=== PATIENT | female | born 1980 | race Caucasian/White ===

== ENCOUNTER 2018-08-23 09:49 | Outpatient (CLI) | payer OTHER, SELFPAY ==
--- NOTE | 2018-08-23 10:30 | DI.RAD_ITS ---
SYMPTOM/DIAGNOSIS: RT FOOT PAIN, 4TH META RIGHT FOOT: No fracture or dislocation is seen. IMPRESSION: Negative right foot.
== END 2018-08-23 10:09 ==
PROVIDERS: Visit Provider Nurse Practitioner Family
DX: M79.671 Pain in right foot (principal)
CPT/HCPCS: 73630

== ENCOUNTER 2019-03-08 10:25 | Emergency (ER) | payer MEDICAID, SELFPAY ==
[2019-03-08 10:30] VITALS: BP 107/61; PULSE 55; RESP 14; TEMP 36.8; O2SAT 100
--- NOTE | 2019-03-08 10:47 | ED.GENADUL_ITS ---
Discharge Plan Disposition Patient Disposition: HOME Condition: Fair Discharge Details Chief Complaint: Urinary Clinical Impression: UTI (urinary tract infection) Primary Care Provider: Isha Peguero ED Provider: Miya Cruz Home Meds and New Rx's Prescriptions: New cephalexin [Keflex] 500 mg capsule 500 mg PO BID Qty: 10 RF: 0 phenazopyridine [Pyridium] 200 mg tablet 200 mg PO TID PRN (Reason: pain) Qty: 10 RF: 0 Discharge Instructions Instructions: Urinary Tract Infection in Women (ED) Additional Instructions: Continue to encourage hydration. You may use Pyridium as prescribed to help with symptom medic management. Please take Keflex as prescribed. If you develop fever/chills, increased pain, back pain or other new/worsening symptoms please seek care urgently once again. Please keep upcoming appointment with primary care. Referrals: Isha Peguero [Primary Care Provider] - Discharge Data Discharge Date/Time-TO BE ENTERED AT DEPARTURE: 03/08/19 11:27 Medical Decision Making Patient is healthy 38-year-old female presents today with chief complaint of UTI. She reports that for the past few days she is no dysuria, increased frequency, increased urgency. She reports that initially she was having some hematuria but this seems to have resolved. Patient is not currently menstruating. She denies any back pain. No abdominal pain. No recent travel. Patient reports that she has a urinary tract infection the past, last of which was 3 years ago. On exam, patient appears nontoxic. This will be managed by mouth. Urinalysis significant for moderate amount of leukocyte esterase. Negative nitrites. Plan to treat with antibiotics. Encourage hydration. She was given strict return precautions. Patient has a new patient appointment in April to establish with primary care. All of her questions and concerns were addressed and she is in agreement this plan. HPI General Mode of arrival: ambulatory . Date/Time Provider Initiated Documentation: 03/08/19 10:45 . Limitations to Documentation: no limitations . Information obtained by: patient and RN notes reviewed . History of Present Illness 38 year old F presents to the emergency department with the chief complaint of dysurea, described as moderate, Quality is described as burning (with urination), and is localized to the genitals. Patient reports no radiation. Patient started experiencing this day(s) and it has been constant. No relieving factors improve symptom(s), No exacerbating factors reported . Patient notes no other symptoms.. Patient did receive the following treatments prior to arrival, none Related Data Home Medications Medication Instructions Recorded Confirmed cephalexin [Keflex] 500 mg PO BID #10 cap 03/08/19 phenazopyridine [Pyridium] 200 mg PO TID PRN #10 tab 03/08/19 Previous Rx's Medication Instructions Recorded cephalexin [Keflex] 500 mg PO BID #10 cap 03/08/19 phenazopyridine [Pyridium] 200 mg PO TID PRN #10 tab 03/08/19 Allergies Allergy/AdvReac Type Severity Reaction Status Date / Time No Known Allergies Allergy Unverified 03/08/19 10:34 General Stated Complaint: Urinary YADY: 4 Review of Systems Constitutional Reports as per HPI, Denies chills, Denies fever(s) and Denies poor appetite Cardiovascular Denies chest pain Respiratory Denies cough Gastrointestinal Denies abdominal pain, Denies change in bowel habits, Denies nausea and Denies vomiting Genitourinary Reports as per HPI Musculoskeletal Reports as per HPI and Denies back pain Integumentary/Breasts Reports as per HPI and Denies rash [facility] Medical History AC separation (Resolved) Dysmenorrhea treated with oral contraceptive Family History (Updated 06/12/14 @ 16:07 by Bhumi Gudino MD) Mother No problems noted. Other Adenomyosis Social History Smoking/Tobacco Use Status: Never Alcohol Intake: current Alcohol Intake frequency: 0-2 drinks per day Alcohol type: beer Substance use type: does not use Household members: spouse current occupation: [employer] What type of physical activity do you participate in: other Do you feel safe at home: Yes Do you feel safe in your relationship?: Yes Exam Const General: cooperative, healthy appearing, comfortable, no acute distress, well developed and well groomed Nutritional Appearance: average body habitus and well nourished Orientation: alert and awake Resp Effort & Inspection: normal respiratory effort and no respiratory distress Auscultation: clear to auscultation bilaterally, no rales, no rhonchi and no wheezes Cardio Rate: regular rate Rhythm: regular rhythm Heart Sounds: S1 normal and S2 normal GI Inspection: normal to inspection Palpation: soft, no hepatosplenomegaly, not firm, no guarding, not rigid and nontender Back/Spine/Pelvis Back: no CVA tenderness Skin General skin exam: no rashes or lesions noted Trauma: no lacerations or abrasions Neuro General: alert and awake Cognition: normal cognition Speech: speech normal Gait: normal gait Psych Appearance: grossly normal and well kempt Mental Status: mental status grossly normal Speech and Movement: speech and movement normal Course Vital Signs Temperature 36.8 C 03/08/19 10:30 Pulse 55 L 03/08/19 10:30 Respiratory Rate 14 03/08/19 10:30 Blood Pressure 107/61 03/08/19 10:30 Pulse Oximetry 100 03/08/19 10:30 Temperature 36.8 C 03/08/19 10:30 Temperature Source Skin 03/08/19 10:30 Pulse 55 L 03/08/19 10:30 Respiratory Rate 14 03/08/19 10:30 Respiratory Effort 03/08/19 10:37 Blood Pressure 107/61 03/08/19 10:30 Blood Pressure Position Sitting 03/08/19 10:30 Pulse Oximetry 100 03/08/19 10:30 Oxygen Delivery Method Room Air 03/08/19 10:30 Oxygen Flow Rate 0 03/08/19 10:30 Pain Level 5 03/08/19 10:40 Lab/Test Results Lab/Test Results: POC- Test(urine) Negative
[2019-03-08 10:56] LABS: Bilirubin Negative (Negative); Blood Trace-intact (Negative); Clarity Clear (Clear); Glucose Negative (Negative); Ketones Negative (Negative); Leukocyte Esterase Moderate (Negative); Nitrite Negative (Negative); Specific Gravity 1.015 (1.005-1.025); Urobilinogen 0.2 EU/dL (Up TO 0.2)
[2019-03-08 11:07] LABS: WBC >50 HPF (0-5)
[2019-03-08 11:08] LABS: Bacteria Few HPF (Negative); C & S Indicated? Yes; Crystals Negative HPF (Negative); Epithelial Cells Few HPF (Negative); Mucus Negative (Negative); RBC 0-2 (0-2)
== END 2019-03-08 11:27 | disposition home or self-care (01) ==
PROVIDERS: Emergency Provider Physician Assistant; PCP Nurse Practitioner
DX: N39.0 Urinary tract infection, site not specified (principal); Z87.440 Personal history of urinary (tract) infections
CPT/HCPCS: 81025; 87077; 99283; 81003; 81015; 87086; 87186

== ENCOUNTER 2019-05-30 11:44 | Outpatient (REF) | payer MEDICAID, SELFPAY ==
--- NOTE | 2019-05-30 10:40 | PAPFT_PTH ---
PATIENT: Erica Márquez LOC: [facility] U#:[id number] AGE/SX: 38/F ROOM: RE05/30/[address]: Bhumi Gudino : 1980 BED: DIS: 05/30/2019 SPEC #: [id number] RECD: 05/30/19 12:54 STATUS: KELLEY REMiki #: [id number] DONA: 05/30/19 10:[address]: Bhumi Gudino DEPT: [facility], 1928–1983 Cytology RECD BY: Crystal Rucker ENTERED: 05/30/19 12:54 SP TYPE: PAPFT OTHR DR: Isha Peguero Tissues: 1 - CX/ENDOCX FOR PAP SMEARS Procedures: PAP THIN PREP/UVM Screening HPV DNA PROBE Comments: [id number]
[2019-05-31 15:28] LABS: Chlamydia Result Negative (Negative); GC Result Negative (Negative); Specimen Description CERVIX
== END 2019-05-30 12:04 ==
LOC: LBN 11:44
PROVIDERS: PCP Nurse Practitioner; Visit Provider Obstetrics & Gynecology Gynecology
DX: Z11.3 Encounter for screening for infections with a predominantly sexual mode of transmission (principal); Z12.4 Encounter for screening for malignant neoplasm of cervix; Z11.51 Encounter for screening for human papillomavirus (HPV)
CPT/HCPCS: 87491; 87591; 88142; 87624

== ENCOUNTER 2019-06-27 10:34 | Outpatient (CLI) | payer MEDICAID, SELFPAY ==
[2019-06-28 15:03] LABS: ANA Interpretation Positive (Negative); ANA Titer Pattern 1:640 Homogeneous
[2019-06-28 19:12] LABS: Complement, Total 58 U/mL (30 - 75)
== END 2019-06-27 10:54 ==
PROVIDERS: PCP Nurse Practitioner; Visit Provider Obstetrics & Gynecology Gynecology
DX: R21 Rash and other nonspecific skin eruption (principal)
CPT/HCPCS: 36415; 86038; 86162

== ENCOUNTER 2019-08-11 09:21 | Outpatient (CLI) | payer MEDICAID, SELFPAY ==
[2019-08-11 09:40] LABS: HCT 40.6 % (36.0-46.0); HGB 13.8 g/dL (12.0-15.5); Mean Corpuscular Hemoglobin 32.6 pg (27.0-33.0); Mean Platelet Volume 9.5 fL (8.0-11.0); Platelet Count 258 x1000/uL (130-400); RBC 4.23 m/cumm (4.00-5.20); RBC Distribution Width 11.5 % (11.7-14.6); White Blood Cell Count 5.51 k/cumm (4.4-10.8)
[2019-08-11 11:11] LABS: ALT 20 U/L (14-59); AST 19 U/L (15-37); Albumin 3.8 g/dL (3.4-5.0); Alkaline Phosphatase 43 U/L (46-116); Anion Gap 6.6 mmol/L (3-11); BUN 11 mg/dL (7-18); Bilirubin, Total 0.9 mg/dL (0.2-1.0); CO2 29.4 mmol/L (21.0-32.0); CREATININE 0.89 mg/dL (0.55-1.02); Chloride 106 mmol/L (98-107); Glucose 70 mg/dL (74-106); Potassium 4.5 mmol/L (3.5-5.1); Sodium 142 mmol/L (136-145); Total Protein 6.6 g/dL (6.4-8.2)
[2019-08-11 12:00] LABS: ESR 4 mm/hr (0-20)
[2019-08-16 08:39] LABS: dsDNA Ab, IgG <12.3 IU/mL (<30.0)
== END 2019-08-11 09:41 ==
PROVIDERS: PCP Nurse Practitioner; Visit Provider Obstetrics & Gynecology Gynecology
DX: R76.8 Other specified abnormal immunological findings in serum (principal)
CPT/HCPCS: 36415; 80053; 85027; 85652; 86225

== ENCOUNTER 2020-02-28 14:37 | Outpatient (REF) | payer MEDICAID, SELFPAY ==
[2020-03-02 14:30] LABS: SARS-CoV-2 RNA Undetected (Undetected); SARS-CoV-2 Specimen Source Nasopharynx
== END 2020-02-28 14:57 ==
LOC: NCHCN 14:37
PROVIDERS: PCP Nurse Practitioner; Visit Provider Nurse Practitioner Family
DX: Z11.59 Encounter for screening for other viral diseases (principal)
CPT/HCPCS: U0003

== ENCOUNTER 2021-03-11 20:52 | Outpatient (REF) | payer MEDICAID, SELFPAY | END 2021-03-11 20:53 | disposition home or self-care (01) | LOC: NCHCN 20:52 | PROVIDERS: PCP Nurse Practitioner; Visit Provider Nurse Practitioner Family | DX: N39.0 Urinary tract infection, site not specified (principal) | CPT/HCPCS: 87077; 87086; 87186 ==

== ENCOUNTER 2021-03-14 09:06 | Outpatient (REF) | payer MEDICAID, SELFPAY ==
--- NOTE | 2021-03-14 08:30 | PAPFT_PTH ---
PATIENT: Erica Márquez LOC: [facility] U#:[id number] AGE/SX: 40/F ROOM: RE03/14/[address]: Bhumi Gudino : 1980 BED: DIS: 03/14/2021 SPEC #: [id number] RECD: 03/14/21 13:11 STATUS: KELLEY REQ #: [id number] DONA: 03/14/21 08:[address]: Bhumi Gudino DEPT: [facility] Cytology RECD BY: Crystal Rucker ENTERED: 03/14/21 13:11 SP TYPE: PAPFT OTHR DR: Isha Peguero Tissues: 1 - CX/ENDOCX FOR PAP SMEARS Procedures: PAP THIN PREP/UVM Screening HPV DNA PROBE Comments: [id number]
== END 2021-03-14 09:07 | disposition home or self-care (01) ==
LOC: LBN 09:06
PROVIDERS: PCP Nurse Practitioner; Visit Provider Obstetrics & Gynecology Gynecology
DX: Z12.4 Encounter for screening for malignant neoplasm of cervix (principal); Z11.51 Encounter for screening for human papillomavirus (HPV)
CPT/HCPCS: 88142; 87624

== ENCOUNTER 2021-08-05 01:14 | Outpatient (CLI) | payer MEDICAID, SELFPAY ==
--- NOTE | 2021-08-05 06:30 | DI.US_ITS ---
Exam(s) US PELVIS TRANSVAGINAL EXAM: US PELVIS TRANSVAGINAL CLINICAL HISTORY: check IUD location,dysfunctional uterine bleeding,dysmenorrhea,n93.8 TECHNIQUE: Ultrasound performed using standard protocol. COMPARISON: No exams were available for comparison FINDINGS: Pelvic ultrasound was performed transabdominally and transvaginally. Uterus measures 7.1 x 4.1 x 5.2 cm and has a homogeneous myometrium. Endometrial stripe is 1-2 millimeters in thickness and appears homogeneous. The patient is reportedl y menstruating. Note is made of an IUD in the body of the uterus, in the inferior half of the endometrial cavity.. Right ovary contains a 3 x 2.8 x 1.6 cm in diameter simple cyst. This is presumably a functional cys t. Otherwise the ovaries are unremarkable in appearance, overall measurements of right ovary are 5.6 x 2.6 x 3 cm and left ovary 2.5 x 1.9 x 2.6 cm. No free fluid identified in the cul-de-sac. Limited scanning of the kidneys is unremarkable. IMPRESSION: IUD is located in the inferior half of uterine body. 3 cm presumed functional cyst of the right ovary noted. DATA REPOSITORY:
== END 2021-08-05 01:34 ==
PROVIDERS: PCP Nurse Practitioner; Visit Provider Obstetrics & Gynecology
DX: N93.8 Other specified abnormal uterine and vaginal bleeding (principal); N94.6 Dysmenorrhea, unspecified; Z97.5 Presence of (intrauterine) contraceptive device; N83.201 Unspecified ovarian cyst, right side
CPT/HCPCS: 76830; 76856

== ENCOUNTER 2023-02-05 15:34 | Outpatient (CLI) | payer MEDICAID, SELFPAY ==
[2023-02-05 17:51] LABS: TSH (W/Ref FT4) 1.17 uIU/mL (0.36-3.74)
== END 2023-02-05 15:35 | disposition home or self-care (01) ==
LOC: LBO 15:35
PROVIDERS: PCP Nurse Practitioner Family; Visit Provider Advanced Practice Midwife
DX: F32.89 Other specified depressive episodes (principal)
CPT/HCPCS: 36415; 84443

== ENCOUNTER 2023-05-21 12:41 | Outpatient (CLI) | payer MEDICAID, SELFPAY ==
[2023-05-21 12:07] LABS: Abs Immature Grans 0.01 10^3/uL (0.0-0.06); Absolute Basophil Count 0.04 10^3/uL (0.0-0.2); Absolute Eosinophil Count 0.08 10^3/uL (0.0-0.7); Absolute Lymphocyte Count 1.98 10^3/uL (1.2-3.4); Absolute Monocyte Count 0.52 10^3/uL (0.1-0.8); Absolute Neutrophil Count 3.48 10^3/uL (1.2-6.7); Basophils % 0.7; Eosinophils % 1.3; HCT 42.9 % (36.0-46.0); HGB 14.3 g/dL (11.2-15.7); Immature Grans % 0.2; Lymphocytes % 32.4; MCH 31.3 pg (27.0-33.0); MCHC 33.3 % (32.0-36.0); MCV 94 fL (80-95); MPV 9.3 fL (8.0-11.0); Monocytes % 8.5; Neutrophils % 56.9; Platelet Count 208 10^3/uL (130-400); RBC 4.57 10^6/uL (3.93-5.22); RDW 11.7 % (11.7-14.6); RDW-SD 40.3 fL; WBC 6.11 10^3/uL (4.4-10.8)
[2023-05-24 10:39] LABS: Syphilis Serology (RPR) Negative (Negative)
[2023-05-24 11:10] LABS: HSV Type 1 Ab, IgG Negative (Negative); HSV Type 2 Ab, IgG Negative (Negative)
[2023-05-24 11:19] LABS: HIV-1/2 Ag & Ab Screen Negative (Negative)
[2023-05-24 15:11] LABS: HBs Antibody, Qual Positive (See Note); HBs Antibody, Quant >1000.0 mIU/mL (See Note); Hepatitis B Core Antibody Negative (Negative); Hepatitis B surface Ag Negative (Negative); Hepatitis C Ab w Rflx HCV PCR Negative (Negative)
== END 2023-05-21 12:42 | disposition home or self-care (01) ==
LOC: LBO 12:41
PROVIDERS: PCP Nurse Practitioner Family; Visit Provider Obstetrics & Gynecology
DX: Z11.3 Encounter for screening for infections with a predominantly sexual mode of transmission (principal); R50.9 Fever, unspecified; Z11.4 Encounter for screening for human immunodeficiency virus [HIV]; Z11.59 Encounter for screening for other viral diseases
CPT/HCPCS: 36415; 86704; 86706; 86803; 87340; 87389; 85025; 86592; 86695; 86696

== ENCOUNTER 2023-05-21 15:40 | Outpatient (REF) | payer MEDICAID, SELFPAY ==
[2023-05-24 13:56] LABS: HSV 1 PCR Positive (Negative); HSV 2 PCR Negative (Negative)
== END 2023-05-21 15:41 | disposition home or self-care (01) ==
LOC: LBN 15:40
PROVIDERS: PCP Nurse Practitioner Family; Visit Provider Obstetrics & Gynecology
DX: Z11.3 Encounter for screening for infections with a predominantly sexual mode of transmission (principal)
CPT/HCPCS: 87529

== ENCOUNTER → 2023-06-10 03:22 | Outpatient (CLI) | payer MEDICAID, SELFPAY ==
--- NOTE | 2023-06-10 08:15 | DI.MAMMO_ITS ---
Exam(s) MAMMO SCREENING EXAM: MAMMO SCREENING CLINICAL HISTORY: screening,Z12.39. TECHNIQUE: Bilateral full field digital CC and MLO mammographic images were obtained with 3D tomosyn thesis and utilizing computer aided detection (CAD). COMPARISON: None. Baseline examination. FINDINGS: Masses/Architectural Distortion: None seen. Microcalcifications: No suspicious pleomorphic-type are seen. Skin Thickening/Nipple Retraction: None. IMPRESSION: 1. No significant interval change with no specific features of malignancy noted. 2. Unless there is more urgent need, annual screening mammography is recommended, as per [place] [employer] guidelines. BI-RADS Category 1-negative Breast Density - Category D - extremely dense Breast Density Category D: The mammogram demonstrates the patient's breast tissue is dense. Dense hector ast tissue is very common and is not abnormal but dense breast tissue can make it harder to find canc er on a mammogram. Also, dense breast tissue may increase their breast cancer risk. This information about the result of the mammogram report was provided to the patient to raise their awareness. Use th is report when you speak with the patient about their risks for breast cancer, which includes their f amily history. At that time, you may recommend for more screening tests (Ultrasound or MRI) as they m ight be useful based on their risk. A negative radiographic report should not delay biopsy if a dominant or clinically suspicious mass is present. Up to ten percent of cancers are not identified on mammography. A negative report may reinforce clinical impression. Adenosis and dense breasts may obscure an underlying neoplasm. False positive reports average 6 to 10%.
== END ==
PROVIDERS: PCP Nurse Practitioner Family; Visit Provider Obstetrics & Gynecology
DX: Z12.31 Encounter for screening mammogram for malignant neoplasm of breast (principal); R92.343 Mammographic extreme density, bilateral breasts
CPT/HCPCS: 77063; 77067

== ENCOUNTER 2023-06-10 17:38 | Outpatient (REF) | payer MEDICAID, SELFPAY ==
--- NOTE | 2023-06-10 15:15 | PAPFT_PTH ---
PATIENT: Erica Márquez LOC: [facility] U#:[id number] AGE/SX: 42/F ROOM: RE06/10/[address]: Ese Phelan MD : 1980 BED: DIS: 06/10/2023 SPEC #: [id number] RECD: 06/10/23 17:53 STATUS: KELLEY REQ #: [id number] DONA: 06/10/23 15:[address]: Ese Phelan DEPT: [facility] Cytology RECD BY: Crystal Rucker ENTERED: 06/10/23 17:54 SP TYPE: PAPFT OTHR DR: DEYSI MELCHOR NP Tissues: 1 - CX/ENDOCX FOR PAP SMEARS Procedures: PAP THIN PREP/UVM Screening HPV DNA PROBE Comments: [id number]
== END 2023-06-10 17:39 | disposition home or self-care (01) ==
LOC: LBN 17:38
PROVIDERS: PCP Nurse Practitioner Family; Visit Provider Obstetrics & Gynecology
DX: N94.10 Unspecified dyspareunia (principal)
CPT/HCPCS: 88142; 87624